=== PATIENT | female | born 1955 | race Caucasian/White ===

== ENCOUNTER → 2016-12-01 | Outpatient (CLI) | payer BC, OTHER ==
[~2016-12-01] MED LIST: ALPR0.5T6 PO; ESTR1PAT63 TD; LUN2 PO; OXCA150T43 PO; PREMVAG VAG; TRAM50TA2 PO
--- NOTE | 2016-12-01 10:41 | RADRPT ---
PROCEDURE: XR AP pelvis/right hip. CLINICAL INDICATION: Hip pain TECHNIQUE: AP pelvis/AP and lateral right hip views performed. COMPARISON: 08/18/2016 FINDINGS: There is a right total hip replacement. There is no evidence of loosening of the prosthesis. There is mild left hip osteoarthrosis. This is associated with joint space narrowing, subchondral sc lerosis and osteophytosis. There is normal osseous mineralization. No fractures or osseous lesions are identified. The soft tissues are unremarkable. IMPRESSION: Right total hip replacement. Mild left hip osteoarthrosis. RPTAT: HGDB .Carlos Lechuga MD, Date Time Electronically viewed and signed by .Carlos Lechuga MD, on 12/01/2016 10:41 .B/
== END | disposition home or self-care (01) ==
LOC: HKI 09:18
PROVIDERS: ATTEND Orthopaedic Surgery
DX: Z47.1 Aftercare following joint replacement surgery (principal); Z96.641 Presence of right artificial hip joint
CPT/HCPCS: 73502; G0463

== ENCOUNTER → 2017-05-15 | Outpatient (CLI) | payer OTHER ==
--- NOTE | 2017-05-15 14:17 | RADRPT ---
PROCEDURE: XR Right hip and pelvis. CLINICAL INDICATION: Right hip pain. Pelvic pain. Postop. TECHNIQUE: Three views. Frontal pelvis. Frontal and lateral right hip. COMPARISON: No prior studies are available for comparison. FINDINGS: There is no fracture or dislocation. The soft tissues are normal. There is a right hip total arthroplasty which appears satisfactory. The left hip is grossly normal. There is no lytic or blastic lesion. The upper pelvis is not completely included on the image. IMPRESSION: 1. Satisfactory postoperative appearance of the right hip. 2. Grossly normal appearance of the left hip. 3. Prior right pelvic surgery. RPTAT: QQ .Karan Cho MD, MD Date Time Electronically viewed and signed by .Karan Cho MD, on 05/15/2017 14:17 .R/
== END | disposition home or self-care (01) ==
LOC: HKI 13:18
PROVIDERS: ATTEND Orthopaedic Surgery
DX: Z47.1 Aftercare following joint replacement surgery (principal); Z96.641 Presence of right artificial hip joint; F31.9 Bipolar disorder, unspecified
CPT/HCPCS: 73502; G0463